=== PATIENT | female | born 1950 | race African-American/Black ===

== ENCOUNTER 2017-09-26 07:40 | Inpatient (IN) | payer SELFPAY ==
[~2017-09-26] VITALS: Ht 162.6 cm; Wt 70.3 kg
[2017-09-26] VITALS (18 sets, daily range): BP systolic 120–148; BP diastolic 62–88
[2017-09-26] MEDS ORDERED: SODIUM CHLORIDE 0.9% 1,000 ML IV ONE (08:27)
[2017-09-26] MEDS ORDERED: INSULIN REGULAR (HUMULIN R) UD 100 UNITS/ML SYR IV ONE (08:30)
[2017-09-26 08:55] LABS: BG BASE EXCESS -4.3 mmol/L (-2.0-2.0); BG CARBOXYHEMOGLOBIN 0.3 % (0.5-1.5); BG DEOXYHEMOGLOBIN 3.8 % (0.0-5.0); BG FRACTION INSPIRED OXYGEN 21; BG HCO3 ACT 20.7 mmol/L (22.0-26.0); BG METHEMOGLOBIN 0.4 % (0.0-1.5); BG OXYGEN SATURATION 96.2 % (92.0-98.5); BG OXYHEMOGLOBIN 95.5 % (94.0-97.0); BG PCO2 38.7 mmHg (35.0-45.0); BG PH 7.347 (7.350-7.450); BG SAMPLE SITE RIGHT BRACHIAL; BG TOTAL HEMOGLOBIN 19.4 g/dL (12.0-18.0); BG VENT MODE ROOM AIR
[2017-09-26] MEDS ORDERED: INSULIN REGULAR (HUMULIN R) 300UNITS/3ML IV NR (09:15)
[2017-09-26 09:27] LABS: INR 1.1; PROTHROMBIN TIME 11.5 sec (9.4-11.6)
[2017-09-26 09:29] LABS: HEMOGLOBIN. 16.7 g/dL (12.0-16.0); LYMPHOCYTES % 21.3 % (20.0-50.0); MEAN CORPUSCULAR HEMOGLOBIN 28.6 pg (28.0-32.0); MEAN CORPUSCULAR VOLUME 88.7 fL (81.0-99.0); MEAN PLATELET VOLUME 9.4 fl (7.4-10.4); MONOCYTES % 7.5 % (2.0-8.0); NEUTROPHILS % 71.2 % (40.0-76.0); PLATELET 227 x1000/uL (130-400); RED BLOOD CELL COUNT 5.86 mill/uL (4.2-5.4); RED CELL DISTRIBUTION WIDTH 13.4 % (11.6-14.6)
[2017-09-26 09:32] LABS: AMMONIA < 25 uMol/L (<32)
[2017-09-26 09:38] LABS: CARBON DIOXIDE 23 mEq/L (21-32); CHLORIDE 109 mEq/L (98-107); ETHANOL BLOOD < 10 mg/dL
[2017-09-26 09:39] LABS: BETA HYDROXYBUTYRATE 6.3 mMol/L (0.0-0.3); TROPONIN I < 0.02 ng/mL (0.00-0.04)
[2017-09-26] MEDS ORDERED: INSULIN REGULAR (DRIP) 100 UNITS in SODIUM CHLORIDE 0.9% 100 ML IV ONE ×2 (09:45→10:00)
[2017-09-26] MEDS ORDERED: SODIUM CHLORIDE 0.9% 1000ML BAG (SEPSIS BOLUS) IV ONE (09:45)
[2017-09-26] MEDS ORDERED: VANCOMYCIN 1 G PREMIX 200 ML IV ONE (09:45)
[2017-09-26] MEDS ORDERED: PIPERACILLIN/TAZ 3.375G PREMIX 50 ML IV ONE (09:45)
[2017-09-26] MEDS ORDERED: ONDANSETRON HCL 4MG/2ML VIAL IV ONE (11:00)
[2017-09-26 11:32] LABS: CLARITY URINE CLEAR (CLEAR); COLOR URINE YELLOW (YELLOW); KETONES URINE TRACE (NEGATIVE); LEUKOCYTE ESTERASE URINE NEGATIVE (NEGATIVE); NITRITE URINE NEGATIVE (NEGATIVE); OCCULT BLOOD URINE 1+ (NEGATIVE); PROTEIN URINE 1+ (NEGATIVE); SPECIFIC GRAVITY URINE 1.032 (1.005-1.030); UROBILINOGEN URINE 0.2 E.U./dL (0.2-1.0)
[2017-09-26 11:49] LABS: *AMPHETAMINES SCREEN URINE NEGATIVE (NEGATIVE); *BARBITURATES SCREEN URINE NEGATIVE (NEGATIVE); *BENZODIAZEPINES SCREEN URINE NEGATIVE (NEGATIVE); *COCAINE SCREEN URINE NEGATIVE (NEGATIVE); CANNABINOID URINE SCREEN NEGATIVE (NEGATIVE); METHADONE URINE SCREEN NEGATIVE (NEGATIVE); OPIATES URINE SCREEN NEGATIVE (NEGATIVE); PHENCYCLIDINE URINE SCREEN NEGATIVE (NEGATIVE)
[2017-09-26] MEDS ORDERED: ACETAMINOPHEN 650MG SUPP PR PRN (15:15)
[2017-09-26] MEDS ORDERED: ONDANSETRON HCL 4MG/2ML VIAL IV PRN (15:15)
[2017-09-26] MEDS ORDERED: DEXTROSE 50% WATER 50ML SYRINGE IV PRN ×2 (15:15)
[2017-09-26] MEDS: BLOOD SUGAR DIAGNOSTIC STRIP TEST SCH ×9 (15:15→23:15)
[2017-09-26] MEDS ORDERED: INSULIN REGULAR (DRIP) 100 UNITS in SODIUM CHLORIDE 0.9% 99 ML IV PRN (15:30)
[2017-09-26] MEDS: DEXT 5%/0.45% NACL KCL 10MEQ/L 1,000 ML IV SCH (16:07)
[2017-09-27] VITALS (24 sets, daily range): BP systolic 122–152; BP diastolic 68–105
[2017-09-27] MEDS: BLOOD SUGAR DIAGNOSTIC STRIP TEST SCH ×11 (00:15→21:53)
[2017-09-27] MEDS: DEXT 5%/0.45% NACL KCL 10MEQ/L 1,000 ML IV SCH (01:59)
[2017-09-27 05:31] LABS: BASOPHILS % 0.2 % (0.0-2.0); HEMATOCRIT. 44.9 % (36.0-48.0); LYMPHOCYTES % 14.7 % (20.0-50.0); MEAN CORPUSCULAR HEMOGLOBIN 28.3 pg (28.0-32.0); MEAN CORPUSCULAR VOLUME 84.6 fL (81.0-99.0); MEAN PLATELET VOLUME 8.8 fl (7.4-10.4); MONOCYTES % 5.3 % (2.0-8.0); NEUTROPHILS % 79.8 % (40.0-76.0); PLATELET 166 x1000/uL (130-400); RED BLOOD CELL COUNT 5.31 mill/uL (4.2-5.4); RED CELL DISTRIBUTION WIDTH 13.2 % (11.6-14.6)
[2017-09-27 06:00] LABS: HDL CHOLESTEROL 48 mg/dL (40-59); LDL CHOLESTEROL 120 mg/dL (5-100)
[2017-09-27 06:57] LABS: CARBON DIOXIDE 29 mEq/L (21-32); CHLORIDE 131 mEq/L (98-107)
[2017-09-27] MEDS ORDERED: DEXTROSE 5% WATER 1,000 ML IV SCH (08:15)
[2017-09-27] MEDS ORDERED: DEXTROSE 50% WATER 50ML SYRINGE IV PRN (08:45)
[2017-09-27] MEDS ORDERED: INSULIN DETEMIR UD 100 UNITS/ML SYR SUBCUT SCH (10:00)
[2017-09-27] MEDS: POTASSIUM CHLORIDE INJ 10 MEQ in DEXTROSE 5% WATER 1,000 ML IV SCH ×3 (10:26→23:56)
[2017-09-27] MEDS: INSULIN LISPRO 100 UNITS/ML SUBCUT SCH ×3 (13:05→21:53)
[2017-09-27] MEDS: POTASSIUM CHLORIDE 20MEQ TABLET SR PO SCH (16:44)
[2017-09-27] MEDS: INSULIN DETEMIR UD 100 UNITS/ML SYR SUBCUT SCH (21:53)
[2017-09-28] VITALS (7 sets, daily range): BP systolic 136–147; BP diastolic 65–82
[2017-09-28] MEDS: BLOOD SUGAR DIAGNOSTIC STRIP TEST SCH ×4 (06:22→21:08)
[2017-09-28 07:11] LABS: BASOPHILS % 0.1 % (0.0-2.0); HEMATOCRIT. 43.4 % (36.0-48.0); HEMOGLOBIN. 14.6 g/dL (12.0-16.0); LYMPHOCYTES % 21.3 % (20.0-50.0); MEAN CORPUSCULAR HEMOGLOBIN 28.3 pg (28.0-32.0); MEAN CORPUSCULAR VOLUME 83.9 fL (81.0-99.0); MEAN PLATELET VOLUME 8.9 fl (7.4-10.4); MONOCYTES % 4.5 % (2.0-8.0); NEUTROPHILS % 74.1 % (40.0-76.0); PLATELET 119 x1000/uL (130-400); RED BLOOD CELL COUNT 5.17 mill/uL (4.2-5.4)
[2017-09-28] MEDS: INSULIN LISPRO 100 UNITS/ML SUBCUT SCH ×5 (08:25→21:11)
[2017-09-28] MEDS: POTASSIUM CHLORIDE 20MEQ TABLET SR PO SCH (08:27)
[2017-09-28 08:56] LABS: CARBON DIOXIDE 28 mEq/L (21-32); CHLORIDE 127 mEq/L (98-107)
[2017-09-28] MEDS ORDERED: POTASSIUM CHLORIDE 20MEQ TABLET SR PO NR (09:45)
[2017-09-28] MEDS: INSULIN DETEMIR UD 100 UNITS/ML SYR SUBCUT SCH ×2 (11:00→21:11)
[2017-09-28] MEDS ORDERED: MAGNESIUM/ALUMINUM HYDROXIDE/SIMETHICONE 30ML UDC PO PRN (12:15)
[2017-09-28 16:52] LABS: BG BASE EXCESS 3.7 mmol/L (-2.0-2.0); BG CARBOXYHEMOGLOBIN 1.2 % (0.5-1.5); BG FRACTION INSPIRED OXYGEN 24; BG HCO3 ACT 25.8 mmol/L (22.0-26.0); BG METHEMOGLOBIN 0.2 % (0.0-1.5); BG OXYGEN SATURATION 92.9 % (92.0-98.5); BG OXYHEMOGLOBIN 91.6 % (94.0-97.0); BG PCO2 31.6 mmHg (35.0-45.0); BG PH 7.529 (7.350-7.450); BG PO2 59.6 mmHg (75.0-100.0); BG SAMPLE SITE LEFT BRACHIAL; BG TOTAL HEMOGLOBIN 14.7 g/dL (12.0-18.0); BG VENT MODE NASAL CANNULA
[2017-09-28] MEDS: POTASSIUM CHLORIDE INJ 10 MEQ in DEXTROSE 5% WATER 1,000 ML IV SCH (18:06)
[2017-09-28] MEDS ORDERED: ACETAMINOPHEN 325MG TABLET PO PRN (18:30)
[2017-09-28 19:41] LABS: CREATINE KINASE 793 IU/L (26-192); TROPONIN I < 0.02 ng/mL (0.00-0.04)
[2017-09-28 19:42] LABS: CREATINE KINASE MB FRACTION 2.6 ng/mL (0.5-3.6)
[2017-09-29] VITALS: BP 134/74
[2017-09-29 04:00] VITALS: BP 137/79
[2017-09-29] MEDS: POTASSIUM CHLORIDE INJ 10 MEQ in DEXTROSE 5% WATER 1,000 ML IV SCH ×3 (04:03→21:00)
[2017-09-29] MEDS: BLOOD SUGAR DIAGNOSTIC STRIP TEST SCH ×4 (07:40→21:04)
[2017-09-29 08:00] VITALS: BP 145/85
[2017-09-29 08:03] LABS: BASOPHILS % 0.1 % (0.0-2.0); EOSINOPHILS % 0.1 % (0.0-5.0); HEMATOCRIT. 40.6 % (36.0-48.0); HEMOGLOBIN. 13.5 g/dL (12.0-16.0); LYMPHOCYTES % 27.4 % (20.0-50.0); MEAN CORPUSCULAR HEMOGLOBIN 28.4 pg (28.0-32.0); MEAN CORPUSCULAR VOLUME 85.6 fL (81.0-99.0); MEAN PLATELET VOLUME 9.3 fl (7.4-10.4); NEUTROPHILS % 67.4 % (40.0-76.0); PLATELET 83 x1000/uL (130-400); RED BLOOD CELL COUNT 4.74 mill/uL (4.2-5.4); RED CELL DISTRIBUTION WIDTH 13.3 % (11.6-14.6)
[2017-09-29 08:44] LABS: CHLORIDE 122 mEq/L (98-107)
[2017-09-29] MEDS: POTASSIUM CHLORIDE 20MEQ TABLET SR PO SCH (09:02)
[2017-09-29] MEDS: INSULIN LISPRO 100 UNITS/ML SUBCUT SCH ×4 (09:04→22:22)
[2017-09-29 09:14] LABS: CARBON DIOXIDE 27 mEq/L (21-32)
[2017-09-29] MEDS: INSULIN DETEMIR UD 100 UNITS/ML SYR SUBCUT SCH ×2 (10:06→22:23)
[2017-09-29 12:00] VITALS: BP 123/65
[2017-09-29 16:00] VITALS: BP 127/67
[2017-09-29 20:00] VITALS: BP 122/87
[2017-09-30] VITALS: BP 133/75
[2017-09-30 04:00] VITALS: BP 121/63
[2017-09-30] MEDS: POTASSIUM CHLORIDE INJ 10 MEQ in DEXTROSE 5% WATER 1,000 ML IV SCH (07:21)
[2017-09-30] MEDS: BLOOD SUGAR DIAGNOSTIC STRIP TEST SCH ×2 (07:36→12:17)
[2017-09-30 08:00] VITALS: BP 108/72
[2017-09-30 08:22] LABS: BASOPHILS % 0.2 % (0.0-2.0); HEMATOCRIT. 38.5 % (36.0-48.0); HEMOGLOBIN. 13.3 g/dL (12.0-16.0); LYMPHOCYTES % 32.8 % (20.0-50.0); MEAN CORPUSCULAR HEMOGLOBIN 28.6 pg (28.0-32.0); MEAN CORPUSCULAR VOLUME 83.2 fL (81.0-99.0); MEAN PLATELET VOLUME 8.7 fl (7.4-10.4); PLATELET 74 x1000/uL (130-400); RED BLOOD CELL COUNT 4.63 mill/uL (4.2-5.4); RED CELL DISTRIBUTION WIDTH 12.7 % (11.6-14.6)
[2017-09-30 08:51] LABS: CARBON DIOXIDE 24 mEq/L (21-32); CHLORIDE 109 mEq/L (98-107)
[2017-09-30] MEDS: INSULIN DETEMIR UD 100 UNITS/ML SYR SUBCUT SCH (09:05)
[2017-09-30] MEDS: POTASSIUM CHLORIDE 20MEQ TABLET SR PO SCH (09:05)
[2017-09-30] MEDS: INSULIN LISPRO 100 UNITS/ML SUBCUT SCH ×2 (09:06→12:42)
[2017-09-30 12:00] VITALS: BP 121/68
[2017-09-30 15:08] VITALS: BP 121/68
[2017-09-30 16:00] VITALS: BP 138/73
== END 2017-09-30 16:50 | disposition home or self-care (01) | DRG 420 ==
LOC: ER 07:45 → ENRESERV 10:23 → CANRESERV 10:23 → CVICU 11:51 → EDBEDREQSVC 11:53 → EDBEDREQTM 11:53 → EDBEDREQ 11:53 → ENRESERV 14:07 → SUPCPDRO 14:57 → 6EST 09-27 10:58 → 7WST 09-28 17:52
PROVIDERS: ADMIT Hospitalist; ATTEND Hospitalist
DX: E11.00 Type 2 diabetes mellitus with hyperosmolarity without nonketotic hyperglycemic-hyperosmolar coma (NKHHC) (principal); G93.40 Encephalopathy, unspecified; N17.9 Acute kidney failure, unspecified; K85.90 Acute pancreatitis without necrosis or infection, unspecified; E87.5 Hyperkalemia; E87.1 Hypo-osmolality and hyponatremia; E87.6 Hypokalemia; I10 Essential (primary) hypertension
CPT/HCPCS: 36415; 36600; 51702; 70450; 71010; 80048; 80053; 80061; 80305; 80307; 80329; 81001; 82010; 82140; 82375; 82550; 82553; 82805; 82962; 83036; 83605; 83690; 83735; 83880; 84443; 84484; 85025; 85610; 87040; 87086; 93005; 93970; 96361; 96365; 96375; 99291; G0482; J1815; J2405; J2543; J3370; J3480; J7030; J7050; J7070; A4315